=== PATIENT | male | born 1965 | race Asian ===

== ENCOUNTER 2016-06-16 06:21 | Day surgery (SDC) | payer OTHER ==
[~2016-06-16] VITALS: Ht 170.2 cm; Wt 77.1 kg
[2016-06-16 06:46] VITALS: BP 144/95
[2016-06-16 10:22] VITALS: BP 154/100
== END 2016-06-16 10:00 | disposition home or self-care (01) ==
LOC: DS 06:21 → GI 07:30 → OR 07:30 → DS 10:00
PROVIDERS: Internal Medicine Gastroenterology
PROC: 0D748ZZ Dilation of Esophagogastric Junction, Via Natural or Artificial Opening Endoscopic (ICD-10-PCS; principal; 2016-06-16 07:30)
PROC: 0DB58ZZ Excision of Esophagus, Via Natural or Artificial Opening Endoscopic (ICD-10-PCS; 2016-06-16 07:30)
DX: K20.9 Esophagitis, unspecified (principal); K22.2 Esophageal obstruction; K31.7 Polyp of stomach and duodenum
CPT/HCPCS: 43235; J1200; J1610; J2250; J2310; J3010; J3490